=== PATIENT | male | born 1965 | race Caucasian/White ===

== ENCOUNTER 2024-11-28 11:52 | Emergency (ER) | payer SELFPAY | END 2024-11-28 13:40 | disposition home or self-care (01) | LOC: VM.ED 11:52 | DX: S83.91XA Sprain of unspecified site of right knee, initial encounter (principal); X58.XXXA Exposure to other specified factors, initial encounter | CPT/HCPCS: 73562-RT; 99283 ==

== ENCOUNTER 2025-04-22 21:35 | Emergency (ER) | payer SELFPAY ==
[2025-04-22] MEDS: Diphtheria,Pertussis(Acell),Tetanus Vaccine 0.5 ML Syringe IM ONE (22:12)
[2025-04-22 22:36] VITALS: BP 148/76; PULSE 64
== END 2025-04-22 22:21 | disposition home or self-care (01) ==
LOC: VM.ED 21:35
DX: S01.01XA Laceration without foreign body of scalp, initial encounter (principal); Z23 Encounter for immunization; W01.198A Fall on same level from slipping, tripping and stumbling with subsequent striking against other object, initial encounter; Y92.002 Bathroom of unspecified non-institutional (private) residence as the place of occurrence of the external cause
CPT/HCPCS: 12002; 90471; 90715; 99284; 99284-25